=== PATIENT | male | born 1970 | race Caucasian/White ===

== ENCOUNTER → 2021-09-25 12:30 | Outpatient (CLI) | payer BC, SELFPAY ==
[2021-09-25 13:55] LABS: Anion Gap 3 (5-15); BUN 17 mg/dL (7-18); Calcium,Total 8.9 mg/dL (8.5-10.1); Chloride 108 mmol/L (98-107); Cholesterol 201 mg/dL (200); Creatinine, Serum 1.13 mg/dL (0.70-1.30); EST Glomerular Filtration Rate 73 mL/min (>60); Est Glom Filt Rate - Afr Amer 88 mL/min (>60); Glucose 97 mg/dL (74-106); High Density Lipoprotein 42 mg/dL; PSA,Total - Annual Screen 4.64 ng/mL (0.00-4.00); Sodium Level 141 mmol/L (136-145); Triglycerides 113 mg/dL; Very Low Density Lipoprotein 23 mg/dL (5-40)
== END ==
PROVIDERS: PCP Family Medicine; Referring Provider Family Medicine; Visit Provider Family Medicine
DX: Z13.1 Encounter for screening for diabetes mellitus (principal); Z13.220 Encounter for screening for lipoid disorders; Z12.5 Encounter for screening for malignant neoplasm of prostate
CPT/HCPCS: 36415; 80048; 80061; 84153; G0103

== ENCOUNTER 2022-01-29 09:08 | Day surgery (SDC) | payer OTHER, SELFPAY ==
--- NOTE | 2022-01-29 | COLBX_PTH ---
PATIENT: MARTY NIÑO LOC: EN U#:[id number] AGE/SX: 51/M ROOM: RE01/29/[address]: Dr. Angelique Singer MD : 1970 BED: DIS: 01/29/2022 SPEC #: [id number] RECD: 01/29/22 13:06 STATUS: DELBERT HÉCTOR #: [id number] YUMIKO: 01/29/22 00:[address]: Angelique Singer DEPT: SURGICAL PATHOLOGY RECD BY: Kavon Phillips ENTERED: 01/29/22 13:06 SP TYPE: COLON BX DONTRELL DR: Dr. Angelo Murray MD Tissues: A - Ascending colon B - Sigmoid colon biopsy Procedures: Surgery Specimen Level IV HEADER OPERATION: Colonoscopy with biopsy ? open access (MAC) PRE-OP DIAGNOSIS: Screening TISSUE SUBMITTED: A ? Biopsy proximal ascending colon, B ? Biopsy sigmoid colon MICROSCOPIC DIAGNOSIS A. Proximal ascending colon, biopsy: Tubular adenoma. B. Sigmoid colon, biopsy: Polypoid fragment of benign colonic mucosa. See comment. AM:leslie 01/30/2022 COMMENT B. Neither hyperplastic nor adenomatous change is identified. Clinical correlation is suggested. MICROSCOPIC DESCRIPTION Slides are reviewed. GROSS DESCRIPTION A - Received in fixative is one container labeled with the patient's name and designated biopsy proximal ascending colon. The specimen consists of one irregular fragment of light mcknight soft tissue that measures 0.4 x 0.4 x 0.1 cm. The specimen is totally submitted in one cassette. B - Received in fixative is one container labeled with the patient's name and designated biopsy sigmoid colon. The specimen consists of two irregular fragments of light mcknight soft tissue that in aggregate measure 0.5 x 0.3 x 0.1 cm. The specimen is totally submitted in one cassette. / SJ:leslie 01/29/2022 TC:5 CPT: 94372 x2
--- NOTE | 2022-01-29 09:14 | HP.PCM_ITS ---
HPI - General HPI Narrative MARTY NIÑO, is a 51 M who presents for screening colonoscopy. Patient never had a previous colonoscopy, denies any family history of colon cancer. Patient states he has bowel moods daily denies any blood denies any chronic abdominal pain/nausea/vomiting/reflux. PFSH Medical History (Updated 01/26/22 @ 09:38 by Rena Villalba) Non-smoker Wears glasses Home Medications NK 01/26/22 [History Last Taken Unknown] Allergy/AdvReac Type Severity Reaction Status Date / Time Penicillins Allergy PT UNSURE Verified 01/29/22 09:47 OF REACTION Surgical History (Updated 01/26/22 @ 09:38 by Rena Villalba) Hx of appendectomy Hx of nasal polypectomy Social History Smoking Status: Never smoker Past Medical/Surgical History Planned Operation Planned Operative Procedure/s: CSCOPE OA Previous Hospitalizations/Surgeries HX Hospitalizations: No Any Problems With Anesthesia: No You/Your Family Experience Fever (Hyperthermia) With Anes: No Cholinesterase deficiency: No Cardiovascular Hx Hypertension: No Respiratory Hx Sleep Apnea: No Hx Respiratory Tract Infection/Cold (presently): No Do You Snore Loudly (louder than talking or can be heard): No Do You Often Feel Tired/ Fatigued/ Sleepy Dring Daytime?: No Has Anyone Observed You Stop Breathing During Sleep?: No Result (for STOP score): Negative Smoking Status: Never smoker Neurological Does patient have nerve stimulator: No Reproduction : No Allergies Penicillins Allergy (Verified 01/29/22 09:47) PT UNSURE OF REACTION Discharge Is Pt Admitted From a Senior Living, or a Penitentiary: No After D/C, Where Do you Plan to Go: Return Home Physical Exam Const alert, oriented x3 and no apparent distress HEENT normocephalic and head/scalp atraumatic Resp normal respiratory effort Cardio regular rate GI soft to palpation and non-tender; Negative for non-distended Palpation: Negative for guarding Extremity no clubbing, cyanosis or edema Neuro CN's II-XII intact bilaterally Psych mental status grossly normal Assessment & Plan Assessment/Plan (1) Encounter for screening for malignant neoplasm of colon: Procedure Criteria Type of Procedure Procedure Type: Elective Elective Risks - COVID COVID Risk Discussion: The surgeon/proceduralist and patient have discussed in detail the risk of exposure to and/or potential harm posed by the COVID-19 virus with having a surgery/procedure at this time versus the risk of delaying the surgery/procedure. It is not possible to know either the risk of delaying the surgery or procedure or chance of getting an infection with perfect accuracy, but a joint decision was made between the patient and the surgeon/proceduralist to proceed at this time with the scheduled surgery/procedure as indicated on the consent form. Surgery Risks - Colonoscopy Risks Include but are not Limited To: Risks include but are not limited to: Bleeding, perforation requiring further surgery, inability to complete colonoscopy requiring barium enema.
[2022-01-29 09:52] VITALS: BP 120/79; PULSE 61; RESP 16; TEMP 36.1; O2SAT 100; BMI 25.9
[2022-01-29] MEDS: Lactated Ringers 1,000 ML 15 ML IV (09:55)
--- NOTE | 2022-01-29 10:57 | OP.COLON_ITS ---
Patient Name: Mani Ayala Procedure Date: 01/29/2022 10:11 AM Date of : 1970 Age: 51 Procedure: Colonoscopy Indications: Screening for colorectal malignant neoplasm Providers: Angelique Singer MD Referring MD: Good Murray Medicines: Monitored Anesthesia Care Patient Profile: This is a 51 year old male. Last Colonoscopy: none. The patient's first colonoscopy is today. Complications: No immediate complications. Procedure: Pre-Anesthesia Assessment: - Prior to the procedure, a History and Physical was performed, and patient medications and allergies were reviewed. The patient's tolerance of previous anesthesia was also reviewed. The risks and benefits of the procedure and the sedation options and risks were discussed with the patient. All questions were answered, and informed consent was obtained. Prior Anticoagulants: The patient has taken no previous anticoagulant or antiplatelet agents. ASA Grade Assessment: Per anesthesia. After reviewing the risks and benefits, the patient was deemed in satisfactory condition to undergo the procedure. After I obtained informed consent, the scope was passed under direct vision. Throughout the procedure, the patient's blood pressure, pulse, and oxygen saturations were monitored continuously. The Colonoscope was introduced through the anus and advanced to the cecum, identified by the appendiceal orifice, ileocecal valve and palpation. The colonoscopy was performed without difficulty. The patient tolerated the procedure well. The quality of the bowel preparation was good. Scope In: 10:19:31 AM Scope Withdrawal Time 0 hours 20 minutes 25 seconds Scope Out: 10:51:04 AM Total Procedure Duration Time 0 hours 31 minutes 33 seconds Findings: Hemorrhoids were found on perianal exam. Non-bleeding internal hemorrhoids were found. The hemorrhoids were Grade I (internal hemorrhoids that do not prolapse). Two sessile polyps were found in the sigmoid colon and proximal ascending colon. The polyps were less than 5 mm in size. These polyps were removed with a cold biopsy forceps. Resection and retrieval were complete. The exam was otherwise without abnormality. Impression: - Hemorrhoids found on perianal exam. - Non-bleeding internal hemorrhoids. - Two less than 5 mm polyps in the sigmoid colon and in the proximal ascending colon, removed with a cold biopsy forceps. Resected and retrieved. - The examination was otherwise normal. Recommendation: - Discharge patient to home. - Resume previous diet. - Continue present medications. - Await pathology results. - Repeat colonoscopy in 5 years for surveillance based on pathology results. Procedure Code(s): --- Professional --- 30197, PT, Colonoscopy, flexible; with biopsy, single or multiple Diagnosis Code(s): --- Professional --- Z12.11, Encounter for screening for malignant neoplasm of colon K64.0, First degree hemorrhoids D12.5, Benign neoplasm of sigmoid colon D12.2, Benign neoplasm of ascending colon CPT copyright 2017 [employer]. All rights reserved. The codes documented in this report are preliminary and upon elementary reading tutor review may be revised to meet current compliance requirements. MD Angelique Arias MD 01/29/2022 10:57:07 AM This report has been signed electronically. Number of Addenda: 0 Note Initiated On: 01/29/2022 10:11 AM
--- NOTE | 2022-01-29 10:58 | OP.CCLET_ITS ---
01/29/2022 Good Murray [address] [place] [address] Re : Colonoscopy procedure for Mani Ayala Dear Dr. Murray This procedure was performed on Saturday, January 29, 2022. My impressions and recommendations are as follows: Impressions : - Hemorrhoids found on perianal exam. - Non-bleeding internal hemorrhoids. - Two less than 5 mm polyps in the sigmoid colon and in the proximal ascending colon, removed with a cold biopsy forceps. Resected and retrieved. - The examination was otherwise normal. Recommendations : - Discharge patient to home. - Resume previous diet. - Continue present medications. - Await pathology results. - Repeat colonoscopy in 5 years for surveillance based on pathology results. My findings are described in the full procedure note, which is enclosed. If I can be of further assistance, please feel free to contact me at Doctor phone number(s): , Work: . Sincerely, MD Angelique Arias MD 01/29/2022 10:57:07 AM This report has been signed electronically.
[2022-01-29 11:00] VITALS: BP 107/71; BP 120/79; PULSE 54; RESP 14; TEMP 36.5; O2SAT 97
[2022-01-29 11:05] VITALS: BP 113/66; BP 120/79; PULSE 57; RESP 14; O2SAT 98
[2022-01-29 11:10] VITALS: BP 111/75; BP 120/79; PULSE 56; RESP 16; O2SAT 97
[2022-01-29 11:15] VITALS: BP 111/72; BP 120/79; PULSE 54; RESP 16; TEMP 36.4; O2SAT 100
[2022-01-29 11:35] VITALS: BP 120/79
== END 2022-01-29 12:01 | disposition home or self-care (01) ==
LOC: EN 09:15 → AC 09:37
PROVIDERS: PCP Family Medicine; Referring Provider Surgery; Visit Provider Surgery
PROC: 0DJD8ZZ Inspection of Lower Intestinal Tract, Via Natural or Artificial Opening Endoscopic (ICD-10-PCS; CPT 45378; principal; 2022-01-29 10:10)
DX: Z12.11 Encounter for screening for malignant neoplasm of colon (principal); D12.2 Benign neoplasm of ascending colon; D12.5 Benign neoplasm of sigmoid colon; K64.0 First degree hemorrhoids
CPT/HCPCS: 45380; 88305; J7120; J2405

== ENCOUNTER → 2023-09-11 | Outpatient (CLI) | payer OTHER, SELFPAY ==
[2023-09-11 18:11] LABS: Anion Gap 8 (5-15); BUN 17 mg/dL (7-18); BUN/Creat Ratio 15.7 RATIO (10-20); Calcium,Total 8.8 mg/dL (8.5-10.1); Chloride 106 mmol/L (98-107); Cholesterol 208 mg/dL (200); Creatinine, Serum 1.08 mg/dL (0.70-1.30); EST Glomerular Filtration Rate 76 mL/min (>60); Est Glom Filt Rate - Afr Amer 92 mL/min (>60); Glucose 81 mg/dL (74-106); High Density Lipoprotein 44 mg/dL; PSA,Total - Annual Screen 4.14 ng/mL (0.00-4.00); Potassium 3.6 mmol/L (3.5-5.1); Sodium Level 141 mmol/L (136-145); Triglycerides 142 mg/dL; Very Low Density Lipoprotein 28 mg/dL (5-40)
== END | disposition home or self-care (01) ==
LOC: MFPLAB 16:48
PROVIDERS: PCP Family Medicine; Visit Provider Family Medicine
DX: Z12.5 Encounter for screening for malignant neoplasm of prostate (principal); Z13.220 Encounter for screening for lipoid disorders; Z13.1 Encounter for screening for diabetes mellitus
CPT/HCPCS: 36415; 80048; 80061; 84153; G0103

== ENCOUNTER → 2024-09-15 | Outpatient (CLI) | payer OTHER, SELFPAY ==
[2024-09-15 18:51] LABS: Anion Gap 7 (5-15); BUN 14 mg/dL (7-18); BUN/Creat Ratio 12.7 RATIO (10-20); Calcium,Total 9.4 mg/dL (8.5-10.1); Chloride 106 mmol/L (98-107); Cholesterol 217 mg/dL (200); EST Glomerular Filtration Rate 74 mL/min (>60); Est Glom Filt Rate - Afr Amer 90 mL/min (>60); Glucose 87 mg/dL (74-106); High Density Lipoprotein 43 mg/dL; PSA,Total - Annual Screen 5.25 ng/mL (0.00-4.00); Potassium 3.6 mmol/L (3.5-5.1); Sodium Level 139 mmol/L (136-145); Triglycerides 170 mg/dL; Very Low Density Lipoprotein 34 mg/dL (5-40)
== END | disposition home or self-care (01) ==
LOC: MFPLAB 17:00
PROVIDERS: PCP Family Medicine; Referring Provider Family Medicine; Visit Provider Family Medicine
DX: Z13.220 Encounter for screening for lipoid disorders (principal); Z13.1 Encounter for screening for diabetes mellitus; Z12.5 Encounter for screening for malignant neoplasm of prostate
CPT/HCPCS: 36415; 80048; 80061; 84153; G0103

== ENCOUNTER → 2025-02-05 | Outpatient (CLI) | payer OTHER, SELFPAY ==
[2025-02-08 13:08] LABS: PSA, Free 0.56 ng/mL; PSA, Free % 11.6 % (.)
== END | disposition home or self-care (01) ==
LOC: MFPLAB 11:25
PROVIDERS: PCP Family Medicine; Visit Provider Urology
DX: R97.20 Elevated prostate specific antigen [PSA] (principal)
CPT/HCPCS: 36415; 84153; 84154

== ENCOUNTER → 2025-09-21 | Outpatient (CLI) | payer OTHER, SELFPAY ==
[2025-09-21 17:50] LABS: Anion Gap 10 (5-15); BUN 15 mg/dL (4-19); BUN/Creat Ratio 13.0 RATIO (10-20); Calcium,Total 9.5 mg/dL (7.6-11.0); Carbon Dioxide 27.0 mmol/L (21.0-32.0); Chloride 105 mmol/L (98-108); Cholesterol 218 mg/dL (<=200); Glucose 91 mg/dL (70-99); Low Density Lipoprotein Calc. 154 mg/dL; Potassium 3.9 mmol/L (3.3-5.1); Triglycerides 136 mg/dL; Very Low Density Lipoprotein 27 mg/dL (5-40); cholesterol:hdl ratio screen 5.55
== END | disposition home or self-care (01) ==
LOC: MTLAB 16:22
PROVIDERS: PCP Family Medicine; Referring Provider Family Medicine; Visit Provider Family Medicine
DX: Z13.1 Encounter for screening for diabetes mellitus (principal); Z13.220 Encounter for screening for lipoid disorders
CPT/HCPCS: 36415; 80048; 80061